=== PATIENT | male | born 1950 | race Caucasian/White ===

== ENCOUNTER 2020-03-27 18:23 | Emergency (ER) | payer MEDICARE, SELFPAY ==
--- NOTE | 2020-03-27 18:26 | XRR_ITS ---
PROCEDURE INFORMATION: Exam: XR Chest, 1 View Exam date and time: 03/27/2020 7:09 PM Age: 69 years old Clinical indication: Left-sided chest pain; Additional info: Cp TECHNIQUE: Imaging protocol: XR of the chest Views: 1 view. COMPARISON: CR Chest 1 view [id number] 02/24/2019 12:44 AM FINDINGS: Lungs: No significant airspace disease. Pleural space: no pleural effusion. Heart/Mediastinum: Borderline cardiomegaly with prominent epicardial fat Diaphragm: Asymmetric elevation of the right hemidiaphragm. Bones/joints: Osteopenia, degenerative change, and old rib fracture. When correlating with the previous study, no significant interval changes are present. . XR/XR chest 1V portable [id number] IMPRESSION: Stable appearance of the chest, not significantly changed from 02/24/19.
--- NOTE | 2020-03-27 19:09 | PC.NURSE ---
EKG done in triage
[2020-03-27 19:12] VITALS: BP 138/75; PULSE 65; RESP 18; TEMP 36.6; O2SAT 97; BMI 32.3
--- NOTE | 2020-03-27 19:19 | CTR_ITS ---
PROCEDURE INFORMATION: Exam: CT Head Without Contrast Exam date and time: 03/27/2020 7:24 PM Age: 69 years old Clinical indication: Weakness, extremity and weakness, facial; Left; Patient HX: HX stroke; Additional info: KRISHNAMURTHY TECHNIQUE: Imaging protocol: Computed tomography of the head without contrast. Radiation optimization: All CT scans at this facility use at least one of these dose optimization techniques: automated exposure control; mA and/or kV adjustment per patient size (includes targeted exams where dose is matched to clinical indication); or iterative reconstruction. COMPARISON: No relevant prior studies available. RADIATION DOSE METRICS: Total DLP (mGy-cm): 917.66 FINDINGS: Brain: Small chronic infarctions are present in the left temporal lobe and bilateral thalami. Mild atrophy and mild white matter chronic microvascular changes are noted. No hemorrhage or CT evidence of acute infarction is seen. Cerebral ventricles: No ventriculomegaly. Bones/joints: Unremarkable. No acute fracture. Paranasal sinuses: Visualized sinuses are unremarkable. No fluid levels. Mastoid air cells: Visualized mastoid air cells are well aerated. Soft tissues: Unremarkable. CT/CT head wo con* [id number] IMPRESSION: No acute intracranial abnormality. Radiation Dose CTDIVOL = (mGy): DLP = 917.66 (mGy-cm)
[2020-03-27 19:22] VITALS: BMI 14.7
--- NOTE | 2020-03-27 19:26 | W.ED.WEAKNES ---
HPI - Weakness General: Chief complaint: Shortness of Breath/Dyspnea Stated complaint: left side pain and stiff, sent by olvin cordova Time Seen by Provider: 03/27/20 19:10 Source: patient Mode of arrival: ambulatory Limitations: no limitations History of Present Illness: HPI Narrative: 69-year-old male states he has had a headache behind his life for the last week. He states he has had some pain down his arm as well. He states he had this multiple times before and is concerned he may have a TIA. He denies any weakness he had no slurred speech. He states he has no chest pain. Denies any worsening improving factors. Denies any fever. Associated symptoms: Reports headache(s); Denies chest pain, chills, dysuria, easy bruising, fever(s), nausea or vomiting Review of Systems Const: Denies: fever(s), chills, body aches or change in appetite Eyes: Denies: blurry vision or eye discomfort ENMT: Denies: throat pain or dental pain Card: Denies: chest pain Resp: Denies: dyspnea GI: Denies: abdominal pain, nausea, vomiting or diarrhea : Denies: dysuria Musc: Denies: neck pain or back pain Skin/Breast: Denies: rash Neuro: Reports: headache(s) Psych: Denies: depression Janes/Lymph: Denies: easy bruising All/Imm: Denies: urticaria PFSH ED PFSH: Medical History (Updated 03/27/20 @ 22:39 by Gabby Woodward MD) Anticoagulation adequate with anticoagulant therapy ASHD (arteriosclerotic heart disease) Atrial fibrillation CVA (cerebral vascular accident) HTN (hypertension) Myocardial infarction Surgical History S/P PTCA (percutaneous transluminal coronary angioplasty) Family History Mother , AGE 97 CAD (coronary artery disease) Social History Smoking and tobacco status: never smoked Household members: spouse Marital status: service: No Physical Exam Const: COMMON NORMALS: no acute distress, patient oriented x3, healthy appearing and alert ORIENTATION/CONSCIOUSNESS: Yes oriented to person, Yes oriented to place and Yes oriented to time HENMT: COMMON NORMALS: normocephalic and atraumatic HEAD & SCALP: normocephalic and atraumatic Eye: COMMON NORMALS: Equal, round and reactive pupils present and EOMs intact bilaterally PUPIL: Yes Equal, round and reactive pupils present Neck/C-Spine: COMMON NORMALS: full ROM and supple Chest: COMMONS NORMALS: normal inspection of the chest and normal palpation of entire chest wall Resp: COMMON NORMALS: normal respiratory effort, No retractions, No use of accessory muscles and clear to auscultation bilaterally AUSCULTATION: clear to auscultation bilaterally Cardio: COMMON NORMALS: regular rate, regular rhythm and No murmurs present (Cardio) RATE: regular rate RHYTHM: regular rhythm GI: COMMON NORMALS: Normal to inspection, nondistended, normoactive bowel sounds present, Soft to palpation, non-tender and no masses PALPATION: Yes Soft to palpation Extremity: COMMON NORMALS: normal to inspection and full ROM Neuro: COMMON NORMALS: patient oriented x3, moves all extremities and no focal motor deficits SENSORIUM/ORIENTATION: Yes alert, Yes oriented to person, Yes oriented to place and Yes oriented to time CRANIAL NERVES: Yes CN normal except as noted COORDINATION/BALANCE: gywbzt-uv-aqgy test normal and pozv-dg-iomh test normal SPEECH: speech normal GAIT: Yes Normal gait present MOTOR EXAM: 5/5 motor strength present throughout, No Pronator motor function present and No Tremors during motor activity present COORDINATION: xrctdy-xz-etfi test normal and ycke-ka-nhtm test normal PUPIL EXAM: Normal pupillary reactivity/response: bilateral Psych: COMMON NORMALS: mental status grossly normal, Normal thought process present and cooperative THOUGHT PROCESS: Normal thought process present Skin: COMMON NORMALS: no rashes or lesions noted and no wounds GENERAL SKIN EXAM: no rashes or lesions noted Course Vital Signs: Vital signs: Vital Signs Temperature 97.9 F 03/27/20 19:12 Pulse Rate 65 03/27/20 22:05 Respiratory Rate 18 03/27/20 22:05 Blood Pressure 133/89 03/27/20 22:05 Pulse Oximetry 94 03/27/20 22:05 MDM - Weakness MDM Narrative: Medical decision making narrative: Genaro presents here with headache along with left neck pain. Neck pain is likely muscular in nature. His neuro exam here is benign he has no signs of acute coronary syndrome or stroke. Patient is stable for discharge at this time is to follow-up with PCP and return if worsening. He understands agrees to plan. Lab Data: Labs: Lab Results 03/27/20 03/27/20 03/27/20 Range/Units 19:23 19:23 19:23 WBC 6.4 (4.0-10.0) 10^3/ uL RBC 5.40 H (4.1-5.3) 10^6/u L Hgb 16.0 (11.7-16.6) g/dL Hct 50.2 (42.0-52.0) % MCV 93.0 (80-94) fL MCH 29.6 (28.0-34.0) pg MCHC 31.9 (30.0-36.0) g/dL RDW 13.4 (12.1-15.1) % Plt Count 251 (130-400) 10^3/c mm MPV 9.9 (7.4-10.4) fL Neut % (Auto) 66.9 % Lymph % (Auto) 19.2 % Wilcox % (Auto) 9.8 % Eos % (Auto) 3.1 % Baso % (Auto) 0.8 % Neut # (Auto) 4.28 (1.8-7.7) 10^3/u L Lymph # (Auto) 1.2 (0.8-4.8) 10^3/u L Wilcox # (Auto) 0.6 (0.2-0.9) 10^3/u L Eos # (Auto) 0.2 (0.0-0.8) 10^3/u L Baso # (Auto) 0.1 (0.0-0.1) 10^3/u L Nucleated RBC % (a uto) 0 % Nucleated RBCs # 0.0 /100WBC Sodium 141 (136-145) mmol/L Potassium 4.4 (3.5-5.1) mmol/L Chloride 106 (98-107) mmol/L Carbon Dioxide 25 (22-29) mmol/L Anion Gap 14.4 (5-19) BUN 24 H (8-23) mg/dL Creatinine 1.7 H (0.7-1.2) mg/dL GFR Calculation Not Reportable Glucose 117 H (65-115) mg/dL Calculated Osmolal ity 297 H (285-295) mOsm/k g Calcium 10.0 (8.5-10.5) mg/dL Total Bilirubin 0.7 (0.15-1.2) mg/dL AST 20 (0-40) U/L ALT 27 (0-41) U/L Alkaline Phosphata se 153 H (40-130) IU/L Troponin T Baselin e 18 H (0-15) ng/L Troponin T 120 Min pretty (0-15) ng/L Delta Troponin T (0-10) ABS# Total Protein 7.4 (6.6-8.7) g/dL Albumin 4.4 (3.5-5.2) g/dL Globulin 3.0 (1.3-4.6) g/dL Lipase 40 (13-60) U/L 03/27/ Range/Units 21:43 WBC (4.0-10.0) 10^3/ uL RBC (4.1-5.3) 10^6/u L Hgb (11.7-16.6) g/dL Hct (42.0-52.0) % MCV (80-94) fL MCH (28.0-34.0) pg MCHC (30.0-36.0) g/dL RDW (12.1-15.1) % Plt Count (130-400) 10^3/c mm MPV (7.4-10.4) fL Neut % (Auto) % Lymph % (Auto) % Wilcox % (Auto) % Eos % (Auto) % Baso % (Auto) % Neut # (Auto) (1.8-7.7) 10^3/u L Lymph # (Auto) (0.8-4.8) 10^3/u L Wilcox # (Auto) (0.2-0.9) 10^3/u L Eos # (Auto) (0.0-0.8) 10^3/u L Baso # (Auto) (0.0-0.1) 10^3/u L Nucleated RBC % (a uto) % Nucleated RBCs # /100WBC Sodium (136-145) mmol/L Potassium (3.5-5.1) mmol/L Chloride (98-107) mmol/L Carbon Dioxide (22-29) mmol/L Anion Gap (5-19) BUN (8-23) mg/dL Creatinine (0.7-1.2) mg/dL GFR Calculation Glucose (65-115) mg/dL Calculated Osmolal ity (285-295) mOsm/k g Calcium (8.5-10.5) mg/dL Total Bilirubin (0.15-1.2) mg/dL AST (0-40) U/L ALT (0-41) U/L Alkaline Phosphata se (40-130) IU/L Troponin T Baselin e (0-15) ng/L Troponin T 120 Min pretty 18.60 H (0-15) ng/L Delta Troponin T 0.60 (0-10) ABS# Total Protein (6.6-8.7) g/dL Albumin (3.5-5.2) g/dL Globulin (1.3-4.6) g/dL Lipase (13-60) U/L Imaging Data^: CT Head: Attestation: I personally reviewed and interpreted this imaging study as follows: Radiologist's impression: [address] [address] [address] Scan Report Signed Patient: Genaro Ayers Unit #: [id number] : 1950 Age/Sex: 69 / M ADM Date: 03/27/20 Loc: ER Room/Bed: Attending Dr: Ordering Provider/Ordering MD: Gabby Woodward MD Date of Service: 03/27/20 Procedure(s): CT head wo con* [id number] Accession Number(s): [id number] Report Number: [id number] PROCEDURE INFORMATION: Exam: CT Head Without Contrast Exam date and time: 03/27/2020 7:24 PM Age: 69 years old Clinical indication: Weakness, extremity and weakness, facial; Left; Patient HX: HX stroke; Additional info: KRISHNAMURTHY TECHNIQUE: Imaging protocol: Computed tomography of the head without contrast. Radiation optimization: All CT scans at this facility use at least one of these dose optimization techniques: automated exposure control; mA and/or kV adjustment per patient size (includes targeted exams where dose is matched to clinical indication); or iterative reconstruction. COMPARISON: No relevant prior studies available. RADIATION DOSE METRICS: Total DLP (mGy-cm): 917.66 FINDINGS: Brain: Small chronic infarctions are present in the left temporal lobe and bilateral thalami. Mild atrophy and mild white matter chronic microvascular changes are noted. No hemorrhage or CT evidence of acute infarction is seen. Cerebral ventricles: No ventriculomegaly. Bones/joints: Unremarkable. No acute fracture. Paranasal sinuses: Visualized sinuses are unremarkable. No fluid levels. Mastoid air cells: Visualized mastoid air cells are well aerated. Soft tissues: Unremarkable. CT/CT head wo con* [id number] IMPRESSION: No acute intracranial abnormality. EKG Data^: EKG 1: Attestation: I personally reviewed and interpreted this EKG as follows: EKG interpretation date: 03/27/20 Interpretation: nsr hr [address] or t wave abnormalities qrs 124 qtc 414 Discharge Plan Discharge Patient Disposition: Home Clinical Impression: Neck pain, Headache Condition: Stable Prescriptions: New Robaxin-750 750 mg tablet 750 mg PO Q6H Qty: 30 RF: 0 Naprosyn 500 mg tablet 500 mg PO BID PRN (Reason: pain) Qty: 20 RF: 0 No Action lisinopril 5 mg tablet 5 mg PO DAILY@0900 RF: 0 nitroglycerin [Nitrostat] 0.4 mg tablet, sublingual 0.4 mg SUBLINGUAL Q5M PRN (Reason: chest pains) RF: 0 clopidogrel 75 mg tablet 75 mg PO DAILY@0900 RF: 0 Centrum Men 8 mg iron- 200 mcg-600 mcg Tablet 1 tab PO DAILY@0900 RF: 0 atorvastatin 40 mg tablet 40 mg PO BEDTIME@2100 RF: 0 metoprolol tartrate 25 mg tablet 25 mg PO DAILY@0900,2100 RF: 0 Eliquis 5 mg tablet 5 mg PO BID@0900,2100 RF: 0 Discharge Orders: Discharge ED (Routine); Ordered 03/27/20 Ordered By: Gabby Woodward Referrals: Neelima El MD [Primary Care Provider] - 1-3 days Discharge Diet: Advance as tolerated Discharge Activity: Resume usual activity Patient Instructions: Acute Headache (ED), Cervical Sprain (ED) Coding Level of Care Code ED Dinkey Press Operator for Chg Fwd Exam Comprehensive
[2020-03-27 19:38] LABS: Basophils # 0.1 10^3/uL (0.0-0.1); Basophils % 0.8 %; Eosinophils # 0.2 10^3/uL (0.0-0.8); Eosinophils % 3.1 %; Hematocrit 50.2 % (42.0-52.0); Lymphocytes # 1.2 10^3/uL (0.8-4.8); Lymphocytes % 19.2 %; Mean Corpuscular HGB Conc 31.9 g/dL (30.0-36.0); Mean Corpuscular Hemoglobin 29.6 pg (28.0-34.0); Mean Platelet Volume 9.9 fL (7.4-10.4); Monocytes # 0.6 10^3/uL (0.2-0.9); Monocytes % 9.8 %; Neutrophils # 4.28 10^3/uL (1.8-7.7); Neutrophils % 66.9 %; Nucleated Red Blood Cells % 0 %; Platelet Count 251 10^3/cmm (130-400); Red Cell Distribution Width 13.4 % (12.1-15.1); White Blood Count 6.4 10^3/uL (4.0-10.0)
[2020-03-27 20:04] LABS: Alanine Aminotransferase 27 U/L (0-41); Albumin Level 4.4 g/dL (3.5-5.2); Alkaline Phosphatase 153 IU/L (40-130); Anion Gap 14.4 (5-19); Aspartate Amino Transferase 20 U/L (0-40); Blood Urea Nitrogen 24 mg/dL (8-23); Carbon Dioxide 25 mmol/L (22-29); Chloride 106 mmol/L (98-107); Glucose 117 mg/dL (65-115); Lipase 40 U/L (13-60); Osmolality Calculated 297 mOsm/kg (285-295); Potassium 4.4 mmol/L (3.5-5.1); Sodium 141 mmol/L (136-145); Total Bilirubin 0.7 mg/dL (0.15-1.2); Total Protein 7.4 g/dL (6.6-8.7)
[2020-03-27 20:08] LABS: Troponin(5th) Baseline 18 ng/L (0-15)
[2020-03-27 20:56] VITALS: BP 118/64; PULSE 63; RESP 16; O2SAT 98
[2020-03-27 22:05] VITALS: BP 133/89; PULSE 65; RESP 18; O2SAT 94
[2020-03-27 23:48] VITALS: BP 145/89; PULSE 68; RESP 16; O2SAT 99
== END 2020-03-27 23:49 | disposition home or self-care (01) ==
PROVIDERS: Emergency Provider Emergency Medicine; Family Provider Family Medicine; PCP Family Medicine
DX: R51.9 Headache, unspecified (principal); M54.2 Cervicalgia; Z79.01 Long term (current) use of anticoagulants; Z79.02 Long term (current) use of antithrombotics/antiplatelets; I48.91 Unspecified atrial fibrillation; Z86.73 Personal history of transient ischemic attack (TIA), and cerebral infarction without residual deficits; I10 Essential (primary) hypertension; I25.2 Old myocardial infarction
CPT/HCPCS: 12345; 70450; 71045; 80053; 83690; 84484; 85025; 99282; 99283

== ENCOUNTER → 2020-07-18 17:31 | Outpatient (BNVA) | payer MEDICARE, SELFPAY | PROVIDERS: Family Provider Family Medicine; PCP Family Medicine; Visit Provider Emergency Medicine | DX: I25.10 Atherosclerotic heart disease of native coronary artery without angina pectoris (principal); I63.9 Cerebral infarction, unspecified; Z79.01 Long term (current) use of anticoagulants | CPT/HCPCS: 85025; 85610; 85730 ==

== ENCOUNTER 2020-07-31 09:51 | Outpatient (CLI) | payer MEDICARE, SELFPAY ==
--- NOTE | 2020-07-31 11:31 | CT_ITS ---
WS: [id number] Comparison 03/27/2020. Exam: CT head wo con* [id number] Date/Time of Exam: 07/31/2020 11:31 AM Reason For Exam: Z79.01 - long-term (current) use of anticoagulants DLP: 992.[address] scans at [facility] use at least one of these dose optimization techniques: automat ed exposure control; mA and/or kV adjustment per patient size (includes targeted exams where dose is matched to clinical indication); or iterative reconstruction. No sign of space-occupying mass or acute intracranial bleed. Old left temporal lobe infarct noted. Th ere are old lacunar infarcts in the bilateral thalami. The ventricles and basal cisterns are normal i n size. No extra-axial fluid collections are seen. Diffuse cerebral atrophy noted. The skull is intac t. The facial sinuses and mastoids are clear. CT/CT head wo con* [id number] IMPRESSION: 1. No acute intracranial finding. No change since prior study.
== END 2020-07-31 09:52 | disposition home or self-care (01) ==
PROVIDERS: PCP Family Medicine; Visit Provider Emergency Medicine
DX: Z79.01 Long term (current) use of anticoagulants (principal); I63.9 Cerebral infarction, unspecified; I25.10 Atherosclerotic heart disease of native coronary artery without angina pectoris
CPT/HCPCS: 70450; 80053; 80061; 83880

== ENCOUNTER → 2020-09-04 16:22 | Outpatient (BNVA) | payer MEDICARE, SELFPAY | PROVIDERS: PCP Family Medicine; Visit Provider Nurse Practitioner Family | DX: N40.0 Benign prostatic hyperplasia without lower urinary tract symptoms (principal); Z87.2 Personal history of diseases of the skin and subcutaneous tissue; N41.0 Acute prostatitis | CPT/HCPCS: 84153 ==

== ENCOUNTER → 2020-09-21 15:06 | Outpatient (BNVA) | payer MEDICARE, SELFPAY | PROVIDERS: PCP Family Medicine; Visit Provider Emergency Medicine | DX: N41.0 Acute prostatitis (principal); R35.0 Frequency of micturition; M54.5 Low back pain | CPT/HCPCS: 81000 ==

== ENCOUNTER → 2020-10-13 17:58 | Outpatient (BNVA) | payer MEDICARE, SELFPAY | PROVIDERS: PCP Family Medicine; Visit Provider Emergency Medicine | DX: N41.0 Acute prostatitis (principal); Z79.899 Other long term (current) drug therapy | CPT/HCPCS: 81000; 87086 ==

== ENCOUNTER → 2020-11-07 09:17 | Outpatient (BNVA) | payer MEDICARE, SELFPAY | PROVIDERS: PCP Family Medicine; Visit Provider Urology | DX: R35.0 Frequency of micturition (principal); N41.1 Chronic prostatitis | CPT/HCPCS: 81003 ==

== ENCOUNTER → 2020-12-26 14:23 | Outpatient (BNVA) | payer MEDICARE, SELFPAY | PROVIDERS: Visit Provider Emergency Medicine | DX: R17 Unspecified jaundice (principal); H10.31 Unspecified acute conjunctivitis, right eye; I10 Essential (primary) hypertension | CPT/HCPCS: 80053; 80061; 85025 ==

== ENCOUNTER → 2021-06-24 12:25 | Outpatient (BNVA) | payer MEDICARE, SELFPAY | PROVIDERS: PCP Nurse Practitioner Family; Visit Provider Nurse Practitioner Family | DX: M10.9 Gout, unspecified (principal); I25.10 Atherosclerotic heart disease of native coronary artery without angina pectoris; R79.89 Other specified abnormal findings of blood chemistry | CPT/HCPCS: 73630; 80053; 84550 ==

== ENCOUNTER → 2021-07-11 09:48 | Outpatient (BNVA) | payer MEDICARE, SELFPAY | PROVIDERS: PCP Nurse Practitioner Family; Visit Provider Urology | DX: N41.1 Chronic prostatitis (principal) | CPT/HCPCS: 81003 ==

== ENCOUNTER → 2021-08-30 17:19 | Outpatient (BNVA) | payer MEDICARE, SELFPAY | PROVIDERS: PCP Nurse Practitioner Family; Visit Provider Emergency Medicine | DX: M10.071 Idiopathic gout, right ankle and foot (principal); M10.9 Gout, unspecified | CPT/HCPCS: 80048; 84550; 85025 ==

== ENCOUNTER → 2021-12-04 12:40 | Outpatient (BNVA) | payer MEDICARE, SELFPAY | PROVIDERS: Visit Provider Emergency Medicine | DX: M10.9 Gout, unspecified (principal); I10 Essential (primary) hypertension | CPT/HCPCS: 80048; 84550 ==

== ENCOUNTER 2022-01-07 17:53 | Emergency (ER) | payer MEDICARE, SELFPAY ==
--- NOTE | 2022-01-07 | CTR_ITS ---
[facility] Final Radiology Report Call: [phone] Name: ONEIDA COLLADO Age: 71Years M Date: 01/07/2022 SSN: -- : 1950 Study: CTA HEAD Requesting Physician: MOSES DEMPSEY Images: [id number] Add?l Studies: [id number] - CTA NECK (1) Provided Clinical History: weakness Page 1 of 3 PROCEDURE INFORMATION: Exam: CTA Head With Contrast, Arteriography Exam date and time: 01/07/2022 6:51 PM Age: 71 years old Clinical indication: Weakness TECHNIQUE: Imaging protocol: Computed tomographic angiography of the head with contrast. Exam focused on the arteries. 3D rendering (Not supervised by radiologist): MIP and/or 3D reconstructed images were created by the technologist. Radiation optimization: All CT scans at this facility use at least one of these dose optimization techniques: automated exposure control; mA and/or kV adjustment per patient size (includes targeted exams where dose is matched to clinical indication); or iterative reconstruction. Contrast material: OMNIPAQUE 350; Contrast volume: 80 ml; Contrast route: INTRAVENOUS (IV); COMPARISON: CT head wo con* [id number] 07/31/2020 11:36 AM RADIATION DOSE METRICS: Total DLP (mGy-cm): 986.42 FINDINGS: ANTERIOR CIRCULATION: Right internal carotid artery: Intracranial segment is patent with no significant stenosis. No aneurysm. Right middle cerebral artery: No occlusion or significant stenosis. No aneurysm. Right anterior cerebral artery: No occlusion or significant stenosis. No aneurysm. Left internal carotid artery: Intracranial segment is patent with no significant stenosis. No aneurysm. Left middle cerebral artery: No occlusion or significant stenosis. No aneurysm. Left anterior cerebral artery: No occlusion or significant stenosis. No aneurysm. POSTERIOR CIRCULATION: Right vertebral artery: Dominant right vertebral artery with patent left vertebral artery. Left vertebral artery: See Right vertebral artery finding. Basilar artery: See Right posterior communicating artery finding. Right posterior cerebral artery: See Right posterior communicating artery finding. Left posterior cerebral artery: See Left posterior communicating artery finding. Right posterior communicating artery: Right posterior communicating artery which supplies most of the flow to the right posterior cerebral artery. Small contribution from the tip of the basilar artery. Normal variant. Left posterior communicating artery: Left posterior communicating artery which supplies most of the flow to the left posterior cerebral artery. Small contribution from the tip of the basilar.. Brain: No definite mass, mass effect, or midline shift. Cerebral ventricles: No ventriculomegaly. Bones/joints: Unremarkable. No acute fracture. Soft tissues: Unremarkable. Other findings: Patent anterior cerebral artery. . IMPRESSION: No large vessel occlusion. PROCEDURE INFORMATION: Exam: CTA Neck With Contrast Exam date and time: 01/07/2022 6:51 PM Age: 71 years old Clinical indication: Weakness TECHNIQUE: Imaging protocol: Computed tomographic angiography of the neck with contrast. 3D rendering (Not supervised by radiologist): MIP and/or 3D reconstructed images were created by the technologist. Radiation optimization: All CT scans at this facility use at least one of these dose optimization techniques: automated exposure control; mA and/or kV adjustment per patient size (includes targeted exams where dose is matched to clinical indication); or iterative reconstruction. Contrast material: OMNIPAQUE 350; Contrast volume: 80 ml; Contrast route: INTRAVENOUS (IV); COMPARISON: CT head wo con* [id number] 07/31/2020 11:36 AM RADIATION DOSE METRICS: Total DLP (mGy-cm): 986.42 FINDINGS: Right common carotid artery: Right carotid bifurcation calcified plaque. Right internal carotid artery: 3 mm minimum diameter proximal right ICA with 5 mm diameter more distally. Mild 40% right ICA stenosis by direct measurement using NASCET criteria. Right external carotid artery: No occlusion or stenosis of the origin. Left common carotid artery: Left carotid bifurcation calcified plaque. Left internal carotid artery: Spiral tortuosity of the left cervical ICA. 4 mm minimum diameter proximal left ICA with 5 mm diameter more distally. Mild left 20% ICA stenosis by direct measurement using NASCET criteria. Left external carotid artery: No occlusion or stenosis of the origin. Right vertebral artery: Dominant right vertebral artery with patent left vertebral artery. Left vertebral artery: Small left vertebral artery which appears to terminate intracranially in the left PICA. Normal variant. Aorta: Calcification of the thoracic aorta and/or great vessels consistent with atherosclerotic vessel disease. Soft tissues: Normal. No significant soft tissue swelling. Bones/joints: Moderate to severe multilevel spine degenerative changes including degenerative disc disease, spondylosis and facet degenerative changes. IMPRESSION: 1. Dominant right vertebral artery with patent left vertebral artery. 2. Mild left 20% ICA stenosis by direct measurement using NASCET criteria. 3. Mild 40% right ICA stenosis by direct measurement using NASCET criteria. REFERENCES: NASCET CRITERIA. The degree of stenosis in the cervical segment of the internal carotid artery is based on NASCET criteria. Normal is no stenosis. Mild is less than 50% stenosis. Moderate is 50- 69% stenosis. Severe is 70% to 99% stenosis. Total occlusion is no detectable patent lumen. Thank you for allowing us to participate in the care of your patient. Dictated and Authenticated by: Larry Paniagua MD 01/07/2022 7:44 PM Central Time ([place] & [place]) BAKARI
[2022-01-07 17:54] VITALS: BP 146/91; PULSE 82; RESP 18; TEMP 36.6; O2SAT 98; BMI 33.5
--- NOTE | 2022-01-07 18:02 | XRR_ITS ---
PROCEDURE INFORMATION: Exam: XR Chest Exam date and time: 01/07/2022 6:23 PM Age: 71 years old Clinical indication: Other: Headache; Additional info: Weakness TECHNIQUE: Imaging protocol: Radiologic exam of the chest. Views: 1 view. COMPARISON: CR XR chest 1V portable [id number] 03/27/2020 7:08 PM FINDINGS: Lungs: Unremarkable. No consolidation. Pleural spaces: Unremarkable. No pleural effusion. No pneumothorax. Heart/Mediastinum: Unremarkable. No cardiomegaly. Bones/joints: Mild thoracic spondylosis. XR/XR chest 1V portable [id number] IMPRESSION: No acute findings.
--- NOTE | 2022-01-07 18:03 | ECG_ITS ---
[facility] Test Date: 2022-01-07 Pat Name: Genaro Ayers Department: Room: Gender: Male Product Mgr: : 1950 Requested By: Gabby Woodward Order Number: [id number] Viola MD: Emiliana Irvin M.D. Measurements Intervals [place] Rate: 72 P: 36 ND: 144 QRS: -23 QRSD: 125 T: 20 QT: 405 QTc: 446 Interpretive Statements SINUS RHYTHM BORDERLINE LEFT AXIS DEVIATION [QRS AXIS < -20] MODERATE INTRAVENTRICULAR CONDUCTION DELAY [110+ ms QRS DURATION] MINIMAL VOLTAGE CRITERIA FOR LVH, CONSIDER NORMAL VARIANT Compared to ECG 03/02/2019 11:26:05 Intraventricular conduction delay now present Atrial flutter no longer present Myocardial infarct finding no longer present Electronically Signed On 01-07-2022 20:25:37 CDT by Emiliana Irvin M.D. [email or web address]
[2022-01-07 18:14] LABS: Basophils # 0.1 10^3/uL (0.0-0.1); Basophils % 0.6 %; Eosinophils # 0.2 10^3/uL (0.0-0.8); Eosinophils % 2.2 %; Hemoglobin 15.4 g/dL (11.7-16.6); Lymphocytes # 1.1 10^3/uL (0.8-4.8); Lymphocytes % 13.3 %; Mean Corpuscular HGB Conc 32.1 g/dL (30.0-36.0); Mean Corpuscular Hemoglobin 29.1 pg (28.0-34.0); Mean Corpuscular Volume 90.6 fl (80-94); Mean Platelet Volume 9.9 fL (7.4-10.4); Monocytes # 0.8 10^3/uL (0.2-0.9); Monocytes % 10.2 %; Neutrophils % 73.6 %; Nucleated Red Blood Cells % 0 %; Platelet Count 251 10^3/cmm (130-400); Red Cell Distribution Width 14.1 % (12.1-15.1); White Blood Count 7.9 10^3/uL (4.0-10.0)
[2022-01-07] MEDS: aspirin 81 mg Chew Tablet 324 MG PO (18:14)
[2022-01-07 18:19] LABS: INR 1.12 (0.8-1.2)
[2022-01-07 18:29] LABS: Troponin(5th) Baseline 19 ng/L (0-15)
[2022-01-07 18:30] LABS: Alanine Aminotransferase 25 U/L (0-41); Albumin Level 4.2 g/dL (3.5-5.2); Alkaline Phosphatase 151 U/L (40-130); Anion Gap 16.3 (5-19); Aspartate Amino Transferase 19 U/L (0-40); Blood Urea Nitrogen 18 mg/dL (8-23); Calcium 9.6 mg/dL (8.5-10.5); Carbon Dioxide 24 mmol/L (22-29); Chloride 101 mmol/L (98-107); Globulin 3.3 g/dL (1.3-4.6); Glucose 95 mg/dL (65-115); Osmolality Calculated 286 mOsm/kg (285-295); Potassium 4.3 mmol/L (3.5-5.1); Sodium 137 mmol/L (136-145); Total Bilirubin 1.1 mg/dL (0.15-1.2); Total Protein 7.5 g/dL (6.6-8.7)
--- NOTE | 2022-01-07 18:31 | ED_ITS ---
HPI - Headache General: Chief Complaint: Headache Stated Complaint: HEADACHE/ L SIDED STIFFNESS Time Seen by Provider: 01/07/22 17:56 Source: patient Mode of arrival: ambulatory Limitations: no limitations History of Present Illness: 71-year-old male who has history of stroke in the past along with TIAs he states he is concerned today because he is having a felt was like some weakness to his left side since resolved he states he does have some numbness feeling to the left side of his face he has no right facial droop he is actually walked into the ER with EMS. He denies any blurry vision denies any slurred speech he has had a mild headache. Associated symptoms: Deny chest pain, fever(s), nausea, rash or vomiting Review of Systems Const: Denies: fever(s), chills, body aches or change in appetite Eyes: Denies: blurry vision or eye discomfort ENMT: Denies: throat pain or dental pain Card: Denies: chest pain Resp: Denies: dyspnea GI: Denies: abdominal pain, nausea, vomiting or diarrhea : Denies: dysuria Musc: Denies: neck pain or back pain Skin/Breast: Denies: rash Neuro: Denies: headache(s) Psych: Denies: depression Janes/Lymph: Denies: easy bruising All/Imm: Denies: urticaria PFSH ED PFSH: Medical History Acute gout of right foot Anticoagulation adequate with anticoagulant therapy ASHD (arteriosclerotic heart disease) Atrial fibrillation Chronic prostatitis CVA (cerebral vascular accident) HTN (hypertension) Low back pain Myocardial infarction Scleral icterus Surgical History S/P PTCA (percutaneous transluminal coronary angioplasty) Family History Mother , AGE 97 CAD (coronary artery disease) Father , AT AGE 53 No problems noted. Social History Smoking and tobacco status: never smoked Alcohol intake: never Household members: spouse Marital status: service: No Current occupational status: retired History of recent travel: No Physical Exam Const: COMMON NORMALS: no acute distress, patient oriented x3 and healthy appearing HENMT: COMMON NORMALS: normocephalic and atraumatic HEAD & SCALP: normocephalic and atraumatic Eye: COMMON NORMALS: Equal, round and reactive pupils present and EOMs intact bilaterally PUPIL: Yes Equal, round and reactive pupils present Neck/C-Spine: COMMON NORMALS: full ROM and supple Chest: COMMONS NORMALS: normal inspection of the chest and normal palpation of entire chest wall Resp: COMMON NORMALS: normal respiratory effort, No retractions, No use of accessory muscles and clear to auscultation bilaterally AUSCULTATION: clear to auscultation bilaterally Cardio: COMMON NORMALS: regular rate, regular rhythm and No murmurs present (Cardio) RATE: regular rate RHYTHM: regular rhythm GI: COMMON NORMALS: Normal to inspection, nondistended, normoactive bowel sounds present, Soft to palpation, non-tender and no masses PALPATION: Yes Soft to palpation Extremity: COMMON NORMALS: normal to inspection and full ROM Neuro: COMMON NORMALS: patient oriented x3, moves all extremities and no focal motor deficits Psych: COMMON NORMALS: mental status grossly normal, Normal thought process present and cooperative THOUGHT PROCESS: Normal thought process present Skin: COMMON NORMALS: no rashes or lesions noted and no wounds GENERAL SKIN EXAM: no rashes or lesions noted Course Vital Signs: Vital signs: Vital Signs Temperature 97.8 F 01/07/22 17:54 Pulse Rate 82 01/07/22 17:54 Respiratory Rate 18 01/07/22 17:54 Blood Pressure 146/91 01/07/22 17:54 Pulse Oximetry 98 01/07/22 17:54 Oxygen Delivery Me thod 01/07/22 17:54 MDM - Headache Medical Decision Making Patient presents here with some numbness to his left side he is able ambulate his NIH here was [address] head showed no acute abnormalities he is on blood thinner at this time. I did offer him admission for possible MRI states he feels improved like to follow-up his PCP I feel this is acceptable as well if he has any worsening symptoms he is to return. Lab Data : 01/07/22 18:05 01/07/22 18:05 Radiology Impressions Chest X-Ray 01/07/22 18:02 IMPRESSION: No acute findings. Laboratory Results WBC 7.9 10^3/uL (4.0-10.0) 10/04/22 18:05 RBC 5.30 10^6/uL (4.1-5.3) 01/07/22 18:05 Hgb 15.4 g/dL (11.7-16.6) 01/07/22 18:05 Hct 48.0 % (42.0-52.0) 01/07/22 18:05 MCV 90.6 fl (80-94) 01/07/22 18:05 MCH 29.1 pg (28.0-34.0) 01/07/22 18:05 MCHC 32.1 g/dL (30.0-36.0) 01/07/22 18:05 RDW 14.1 % (12.1-15.1) 01/07/22 18:05 Plt Count 251 10^3/cmm (130-400) 01/07/22 18:05 MPV 9.9 fL (7.4-10.4) 01/07/22 18:05 Neut % (Auto) 73.6 % 01/07/22 18:05 Lymph % (Auto) 13.3 % 01/07/22 18:05 [place] % (Auto) 10.2 % 01/07/22 18:05 Eos % (Auto) 2.2 % 01/07/22 18:05 Baso % (Auto) 0.6 % 01/07/22 18:05 Neut # (Auto) 5.80 10^3/uL (1.8-7.7) 01/07/22 18:05 Lymph # (Auto) 1.1 10^3/uL (0.8-4.8) 01/07/22 18:05 [place] # (Auto) 0.8 10^3/uL (0.2-0.9) 01/07/22 18:05 Eos # (Auto) 0.2 10^3/uL (0.0-0.8) 01/07/22 18:05 Baso # (Auto) 0.1 10^3/uL (0.0-0.1) 01/07/22 18:05 Nucleated RBC % (auto) 0 % 01/07/22 18:05 Nucleated RBCs # 0.0 /100WBC 01/07/22 18:05 PT 14.80 SECONDS (12.1-14.9) 01/07/22 18:05 INR 1.12 (0.8-1.2) 01/07/22 18:05 Sodium 137 mmol/L (136-145) 01/07/22 18:05 Potassium 4.3 mmol/L (3.5-5.1) 01/07/22 18:05 Chloride 101 mmol/L (98-107) 01/07/22 18:05 Carbon Dioxide 24 mmol/L (22-29) 01/07/22 18:05 Anion Gap 16.3 (5-19) 01/07/22 18:05 BUN 18 mg/dL (8-23) 01/07/22 18:05 Creatinine 1.4 mg/dL (0.7-1.2) H 01/07/22 18:05 GFR Calculation Not Reportable 01/07/22 18:05 Glucose 95 mg/dL (65-115) 01/07/22 18:05 Calculated Osmolality 286 mOsm/kg (285-295) 01/07/22 18:05 Calcium 9.6 mg/dL (8.5-10.5) 01/07/22 18:05 Total Bilirubin 1.1 mg/dL (0.15-1.2) 01/07/22 18:05 AST 19 U/L (0-40) 01/07/22 18:05 ALT 25 U/L (0-41) 01/07/22 18:05 Alkaline Phosphatase 151 U/L (40-130) H 01/07/22 18:05 Troponin T Baseline 19 ng/L (0-15) H 01/07/22 18:05 Troponin T 120 Minute 17.40 ng/L (0-15) H 01/07/22 20:00 Delta Troponin T -1.60 ABS# (0-10) L 01/07/22 20:00 Total Protein 7.5 g/dL (6.6-8.7) 01/07/22 18:05 Albumin 4.2 g/dL (3.5-5.2) 01/07/22 18:05 Globulin 3.3 g/dL (1.3-4.6) 01/07/22 18:05 EKG Data EKG 1: I personally reviewed and interpreted this EKG as follows: EKG interpretation date: 01/07/22 EKG interpretation time: 18:39 Interpretation: nsr hr [address] or t wave abnormalities qrs 125 qtc 430 Discharge Plan Discharge Patient Disposition: Home Clinical Impression: Brain TIA Condition: Stable Prescriptions: No Action tamsulosin [Flomax] 0.4 mg capsule 0.4 mg PO .occ allopurinol 100 mg tablet 150 mg PO DAILY Qty: 135 1RF lisinopril 10 mg tablet 10 mg PO BID Qty: 60 1RF fish,bora,flax oils-om3,6,9no1 400-400-400 mg capsule 1 cap PO DAILY Qty: 90 1RF Eliquis 5 mg tablet 5 mg PO BID Qty: 180 3RF clopidogrel 75 mg tablet 75 mg PO DAILY@0900 Qty: 90 3RF metoprolol tartrate 25 mg tablet 25 mg PO BID Qty: 180 3RF atorvastatin 40 mg tablet 40 mg PO BEDTIME@2100 Qty: 90 3RF Centrum Men 8 mg iron- 200 mcg-600 mcg Tablet 1 tab PO DAILY@0900 Discharge Orders: Discharge ED (Routine); Ordered 01/07/22 Ordered By: Gbaby Woodward Referrals: Neelima El MD [Primary Care Provider] - 1-3 days Discharge Diet: Advance as tolerated Discharge Activity: Resume usual activity Patient Instructions: TIA Coding Level of Care Code ED Superintendent Service for Benedict Edmondson Exam Comprehensive NIH stroke score NIHSS Level Of Consciousness - 1a: 0 Level Of Consciousness Commands - 1c: Both Correct Best Gaze - 2: Normal Visual Bateman - 3: No Visual Loss Facial Palsy - 4: Normal Motor Arm Right - 5: No Drift Motor Arm Left - 5: No Drift Motor Leg Right - 6: No Drift Motor Leg Left - 6: No Drift Limb Ataxia - 7: Absent Sensory - 8: Normal Best Language - 9: No Aphasia Dysarthia - 10: Normal Extinction And Inattention - 11: 0
--- NOTE | 2022-01-07 18:55 | PC.NURSE ---
report given to ralph presley assumed care.
--- NOTE | 2022-01-07 20:03 | ECG_ITS ---
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 Measurements Intervals [place] Rate: 71 P: 38 [place]: 144 QRS: -25 QRSD: 125 T: 23 QT: 415 QTc: 454 Interpretive Statements SINUS RHYTHM BORDERLINE LEFT AXIS DEVIATION [QRS AXIS < -20] MODERATE INTRAVENTRICULAR CONDUCTION DELAY [110+ ms QRS DURATION] MODERATE VOLTAGE CRITERIA FOR LVH, CONSIDER NORMAL VARIANT Compared to ECG 01/07/2022 18:39:41 No significant changes Electronically Signed On 01-07-2022 20:34:12 CDT by Emiliana Irvin M.D. [email or web address]
[2022-01-07 21:50] VITALS: BP 125/76; PULSE 72; O2SAT 92
== END 2022-01-07 21:37 | disposition home or self-care (01) ==
PROVIDERS: Emergency Provider Emergency Medicine; PCP Family Medicine
DX: G45.8 Other transient cerebral ischemic attacks and related syndromes (principal); I10 Essential (primary) hypertension; I48.91 Unspecified atrial fibrillation; I25.10 Atherosclerotic heart disease of native coronary artery without angina pectoris; I25.2 Old myocardial infarction; Z79.01 Long term (current) use of anticoagulants; Z86.73 Personal history of transient ischemic attack (TIA), and cerebral infarction without residual deficits; Z82.49 Family history of ischemic heart disease and other diseases of the circulatory system
CPT/HCPCS: 70450; 70496; 70498; 71045; 80053; 84484; 85025; 85610; 93005; 99285; Q9967

== ENCOUNTER → 2022-01-17 10:44 | Outpatient (BNVA) | payer MEDICARE, SELFPAY | PROVIDERS: PCP Family Medicine; Visit Provider Internal Medicine Cardiovascular Disease | DX: I48.0 Paroxysmal atrial fibrillation (principal); Z79.01 Long term (current) use of anticoagulants; Z86.73 Personal history of transient ischemic attack (TIA), and cerebral infarction without residual deficits; I10 Essential (primary) hypertension; I25.10 Atherosclerotic heart disease of native coronary artery without angina pectoris; Z98.61 Coronary angioplasty status | CPT/HCPCS: 99214 ==

== ENCOUNTER → 2022-01-24 12:20 | Outpatient (BNVA) | payer MEDICARE, SELFPAY | PROVIDERS: Visit Provider Specialist | DX: I99.8 Other disorder of circulatory system (principal); I25.10 Atherosclerotic heart disease of native coronary artery without angina pectoris; G93.9 Disorder of brain, unspecified; I48.91 Unspecified atrial fibrillation; I65.29 Occlusion and stenosis of unspecified carotid artery; Z79.01 Long term (current) use of anticoagulants; I21.9 Acute myocardial infarction, unspecified | CPT/HCPCS: 36415; 82607; 82746; 83036; 85610; 99205 ==

== ENCOUNTER → 2022-02-06 13:04 | Outpatient (BNVA) | payer MEDICARE, SELFPAY | PROVIDERS: Referring Provider Specialist; Visit Provider Specialist | DX: G93.9 Disorder of brain, unspecified (principal); G45.9 Transient cerebral ischemic attack, unspecified | CPT/HCPCS: 95812; 95816 ==

== ENCOUNTER → 2022-02-17 07:50 | Outpatient (BNVA) | payer MEDICARE, SELFPAY | PROVIDERS: Referring Provider Specialist; Visit Provider Specialist | DX: G93.9 Disorder of brain, unspecified (principal); G45.9 Transient cerebral ischemic attack, unspecified; R41.82 Altered mental status, unspecified | CPT/HCPCS: 95812 ==

== ENCOUNTER → 2022-03-10 15:57 | Outpatient (BNVA) | payer MEDICARE, SELFPAY | PROVIDERS: Visit Provider Nurse Practitioner Family | DX: M10.9 Gout, unspecified (principal); G45.9 Transient cerebral ischemic attack, unspecified | CPT/HCPCS: 84550 ==

== ENCOUNTER → 2022-06-04 10:25 | Outpatient (BNVA) | payer MEDICARE, SELFPAY | PROVIDERS: Visit Provider Nurse Practitioner Family | DX: M10.071 Idiopathic gout, right ankle and foot (principal); I10 Essential (primary) hypertension; Z79.01 Long term (current) use of anticoagulants | CPT/HCPCS: 80053; 84550 ==

== ENCOUNTER → 2022-06-13 14:16 | Outpatient (BNVA) | payer MEDICARE, SELFPAY | PROVIDERS: Visit Provider Emergency Medicine | DX: N41.1 Chronic prostatitis (principal); R10.9 Unspecified abdominal pain | CPT/HCPCS: 81000; 87086 ==

== ENCOUNTER → 2022-07-10 12:51 | Outpatient (BNVA) | payer MEDICARE, SELFPAY | PROVIDERS: Visit Provider Urology | DX: R10.9 Unspecified abdominal pain (principal); N41.1 Chronic prostatitis | CPT/HCPCS: 51798; 81003; 99213 ==

== ENCOUNTER → 2022-08-08 12:05 | Outpatient (BNVA) | payer MEDICARE, SELFPAY | PROVIDERS: Visit Provider Family Medicine | DX: M1A.9XX0 Chronic gout, unspecified, without tophus (tophi) (principal); I10 Essential (primary) hypertension; Z79.01 Long term (current) use of anticoagulants | CPT/HCPCS: 80053; 80061; 84550; 85049; 85384; 85610; 85730 ==

== ENCOUNTER → 2022-09-19 09:50 | Outpatient (BNVA) | payer MEDICARE, SELFPAY | PROVIDERS: Visit Provider Internal Medicine Cardiovascular Disease | DX: I48.0 Paroxysmal atrial fibrillation (principal); M1A.9XX0 Chronic gout, unspecified, without tophus (tophi); I10 Essential (primary) hypertension; I25.10 Atherosclerotic heart disease of native coronary artery without angina pectoris; E78.5 Hyperlipidemia, unspecified; Z86.73 Personal history of transient ischemic attack (TIA), and cerebral infarction without residual deficits; Z79.01 Long term (current) use of anticoagulants | CPT/HCPCS: 99214 ==

== ENCOUNTER → 2022-10-21 11:30 | Outpatient (BNVA) | payer MEDICARE, SELFPAY | PROVIDERS: PCP Family Medicine; Referring Provider Family Medicine; Visit Provider Specialist | DX: R56.9 Unspecified convulsions (principal); G93.9 Disorder of brain, unspecified; G45.9 Transient cerebral ischemic attack, unspecified; R41.82 Altered mental status, unspecified; I48.0 Paroxysmal atrial fibrillation; Z79.01 Long term (current) use of anticoagulants | CPT/HCPCS: 99214 ==

== ENCOUNTER 2022-11-14 11:34 | Outpatient (CLI) | payer MEDICARE, SELFPAY ==
--- NOTE | 2022-11-14 11:00 | MR_ITS ---
WS: [id number] MRA ANGIOGRAPHY [place] OF [place] HISTORY: R51.9 - Headache, unspecified COMPARISON: CT angiogram 01/07/2022 TECHNIQUE: 3-D MR angiography is performed of the [place]. All images are reviewed including source images. Dominant distal right vertebral artery. Very small distal left vertebral artery. Normal basilar arter y. Well-developed posterior communicating arteries. Posterior cerebral arteries are both patent also. No aneurysms. Intracranial carotid arteries are normal. No significant atherosclerotic plaque or occlusion. Middle cerebral arteries are well opacified. No aneurysm or occlusion. There is a tiny amount of atheroscler otic plaque in the M1 segments, left greater than right. Normal anterior communicating arteries. Norm al anterior cerebral arteries. No aneurysm. IMPRESSION: 1. Mild atherosclerotic disease in the middle cerebral arteries. No high-grade stenosis or occlusion. 2. No cerebral artery aneurysms. 3. Very small caliber distal left vertebral artery due to normal variant.
--- NOTE | 2022-11-14 11:15 | MR_ITS ---
WS: [id number] MRI BRAIN WITHOUT CONTRAST HISTORY: R56.9 - Unspecified convulsions COMPARISON: Noncontrast CT head 07/31/2020 and 03/27/2020 TECHNIQUE: Diffusion imaging, multiplanar T1, T2 and FLAIR imaging obtained. Normal diffusion imaging. There is a prior remote infarct with mild volume loss in the left temporal lobe. Volume loss and prior infarct changes were also noted on the prior head CTs from 2020 and 2019. Otherwise mild small vessel ischemic type changes throughout the white matter. No prior lacunar infa rcts. Mild cerebral atrophy. Focal encephalomalacia left temporal lobe at the site of the prior infarct. Ventricles and extra-axial spaces are normal. No inferior displacement of cerebellar tonsils. The sella turcica and pituitary gland are unremarkabl e. Dural venous sinuses and [place] of [place] demonstrate no abnormality on this unenhanced studies. Smal l caliber distal left vertebral artery. Paranasal sinuses: Mild mucoperiosteal thickening left maxillary sinus. No air-fluid levels. Mastoid air cells: Normal. Calvarium and scalp: Intact. IMPRESSION: 1. Normal diffusion imaging. No acute infarct. 2. Remote left temporal lobe infarct with encephalomalacia. 3. Mild small vessel ischemic type changes.
== END 2022-11-14 11:35 | disposition home or self-care (01) ==
PROVIDERS: PCP Family Medicine; Visit Provider Specialist
DX: G45.9 Transient cerebral ischemic attack, unspecified (principal); G93.9 Disorder of brain, unspecified; R51.9 Headache, unspecified; R56.9 Unspecified convulsions; R41.82 Altered mental status, unspecified
CPT/HCPCS: 70544; 70551

== ENCOUNTER → 2023-02-05 12:46 | Outpatient (BNVA) | payer MEDICARE, SELFPAY | PROVIDERS: PCP Family Medicine; Visit Provider Specialist | DX: G93.89 Other specified disorders of brain (principal); R41.82 Altered mental status, unspecified; Z79.02 Long term (current) use of antithrombotics/antiplatelets | CPT/HCPCS: 99214 ==

== ENCOUNTER → 2023-03-13 10:58 | Outpatient (BNVA) | payer MEDICARE, SELFPAY | PROVIDERS: PCP Family Medicine; Visit Provider Internal Medicine Cardiovascular Disease | DX: I48.0 Paroxysmal atrial fibrillation (principal); I10 Essential (primary) hypertension; I25.10 Atherosclerotic heart disease of native coronary artery without angina pectoris; E78.5 Hyperlipidemia, unspecified; Z86.73 Personal history of transient ischemic attack (TIA), and cerebral infarction without residual deficits; Z79.01 Long term (current) use of anticoagulants | CPT/HCPCS: 99214 ==

== ENCOUNTER → 2023-05-04 11:36 | Outpatient (BNVA) | payer MEDICARE, SELFPAY | PROVIDERS: PCP Family Medicine; Visit Provider Family Medicine | DX: M1A.9XX0 Chronic gout, unspecified, without tophus (tophi) (principal); I10 Essential (primary) hypertension; I48.0 Paroxysmal atrial fibrillation; B07.9 Viral wart, unspecified; N41.1 Chronic prostatitis | CPT/HCPCS: 80053; 84550 ==

== ENCOUNTER → 2023-09-16 14:19 | Outpatient (BNVA) | payer MEDICARE, SELFPAY | PROVIDERS: PCP Family Medicine; Visit Provider Internal Medicine | DX: I48.0 Paroxysmal atrial fibrillation (principal); Z86.73 Personal history of transient ischemic attack (TIA), and cerebral infarction without residual deficits; I10 Essential (primary) hypertension; E78.5 Hyperlipidemia, unspecified; I25.10 Atherosclerotic heart disease of native coronary artery without angina pectoris; Z79.01 Long term (current) use of anticoagulants | CPT/HCPCS: 99214 ==

== ENCOUNTER → 2023-09-21 15:55 | Outpatient (BNVA) | payer MEDICARE, SELFPAY | PROVIDERS: PCP Family Medicine; Visit Provider Family Medicine | DX: M1A.9XX0 Chronic gout, unspecified, without tophus (tophi) (principal); I10 Essential (primary) hypertension; I48.0 Paroxysmal atrial fibrillation; N41.1 Chronic prostatitis; N18.30 Chronic kidney disease, stage 3 unspecified | CPT/HCPCS: 80053; 84550 ==

== ENCOUNTER 2023-12-18 13:23 | Outpatient (CLI) | payer MEDICARE, SELFPAY ==
[2023-12-18 14:09] LABS: Prostate Specific Antigen Scr 0.53 ng/mL (0-4)
== END 2023-12-18 13:24 | disposition home or self-care (01) ==
LOC: LAB 13:26
PROVIDERS: PCP Family Medicine; Visit Provider Urology
DX: Z12.5 Encounter for screening for malignant neoplasm of prostate (principal)
CPT/HCPCS: 36415; G0103

== ENCOUNTER → 2024-06-15 14:00 | Outpatient (BNVA) | payer MEDICARE, SELFPAY | PROVIDERS: PCP Family Medicine; Visit Provider Internal Medicine | DX: I48.0 Paroxysmal atrial fibrillation (principal); Z86.73 Personal history of transient ischemic attack (TIA), and cerebral infarction without residual deficits; I10 Essential (primary) hypertension; I25.10 Atherosclerotic heart disease of native coronary artery without angina pectoris; E78.5 Hyperlipidemia, unspecified; R07.9 Chest pain, unspecified | CPT/HCPCS: 99214 ==

== ENCOUNTER 2024-06-22 09:46 | Outpatient (CLI) | payer MEDICARE, SELFPAY ==
--- NOTE | 2024-06-22 | ECG_ITS ---
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 Interpretive Statements Lung unchanged pre/post procedure; Intraprocedure shortess of breath; Symptoms resoled by discharge PROCEDURE: At the baseline, the EKG revealed sinus bradycardia with a rate of 56 bpm. Features of old inferior wall VA. Some nonspecific ST changes.. The baseline heart was 56 bpm with a blood pressue of 162/82 mm of Hg Lexiscan was infused over a period of 20 seconds. A total of 0.4 milligrams of Lexiscan was infused. The stress phase was continued for a total of 5 minutes. Heart rate at the end of the stress phase was 51 bpm with a blood pressure 96/72 mm of Hg. The EKG at the peak infusion revealed no significant changes. Sestamibi was injected 20 seconds after the Lexiscan infusion. Heart rate at the end of the recovery phase was 52 bpm with a blood pressure of 198/92 mm of Hg. CONCLUSION: 1. No significant EKG changes with the LexiScan infusion 2. No LexiScan induced chest pain or cardiac arrhythmia 3. Normal blood pressure and heart rate response 4. Sestamibi/sestamibi perfusion scan pending; see separate report. Electronically Signed On 06-24-2024 16:13:32 CDT by Markell Weber M.D. [id number] [id number]
[2024-06-22 10:15] VITALS: BMI 36.6
--- NOTE | 2024-06-22 10:15 | NMCV_ITS ---
NM aguilar perf SPECT r/s* [id number] Genaro Ayers Age: 73 Gender: M : 1950 Exam Date: 06/22/2024 10:52 Ordering Phys: Juan Ayala M.D ([email or web address]) Technologist: CAIN Sandoval Exam Location: [facility] Indications: cp STRESS TEST Please see separate stress test report in [facility] for full findings IMAGE PROTOCOL Rest/Stress 1 Lexiscan Day Radiopharmaceutical Dose (mCi) Administration Site Administered by Rest: Tc-99m 10.6 IV Felicita Lynch BEAN PICKER Sestamibi Stress:Tc-99m 33 IV Felicita Alonsogle, BEAN PICKER Sestamibi Rest: 22-Jun-2024 60 Discovery 630 Stress: 22-Jun-2024 30 Discovery 630 0.4mg Lexiscan. Images obtained in supine and prone position. SPECT RESULTS Technical Quality: Good Raw Data Analysis: Normal Image Corrections: No attenuation or motion correction applied Summed Stress Score: 19 Summed Rest Score: 16 Summed Difference Score: 4 PERFUSION FINDINGS Moderate to large area of moderate to severely decreased tracer uptake involving the inferior, inferolateral, mid anterolateral and mid apical lateral segments. Slight reversibility is noted in the apical inferior and mid inferolateral segments. A small area of slightly decreased tracer uptake also was noted in the mid anterior wall. Some reversibility was noted in this region as well. FUNCTIONAL RESULTS (calculated via Gated SPECT) Stress Image LV EF (%): 51 Stress EDV (mL):177 TID: 1.15 Stress ESV (mL):87 FUNCTIONAL FINDINGS: Segmental wall motion has revealed no gross wall motion abnormalities. IMPRESSIONS 1. Myocardial perfusion imaging revealing a moderately large area of moderate to severely decreased tracer uptake involving the inferior, inferolateral, anterolateral and apical lateral regions with slight reversibility in the basal inferior, mid inferolateral and apical sinus. Inferior wall regions, suggesting extensive myocardial scarring in the distribution of the right coronary artery and the left circumflex artery with small areas of sandy- infarction ischemia.. The summed difference score was 4 with the summed stress score of 19. 2. Normal LV ejection fraction 51%. 3. LV wall motion analysis revealing no gross wall motion abnormalities. 4. Mildly dilated LV cavity with end-systolic volume of 87 mL No similar previous studies are available for comparison Dr Markell Weber MD FACC (Electronically Signed) Final Date: 22 June 2024 13:50 S
[2024-06-22] MEDS: regadenoson 0.4 Mg/5 ml Syringe IVP (11:21)
[2024-06-22 11:29] VITALS: BP 119/92; PULSE 52
== END 2024-06-22 09:47 | disposition home or self-care (01) ==
PROVIDERS: PCP Family Medicine; Visit Provider Internal Medicine
DX: R07.9 Chest pain, unspecified (principal); R06.02 Shortness of breath; R93.1 Abnormal findings on diagnostic imaging of heart and coronary circulation; I42.0 Dilated cardiomyopathy
CPT/HCPCS: 36415; 78452; 93017; 96374; A9500; J2785

== ENCOUNTER → 2024-07-20 09:17 | Outpatient (BNVA) | payer MEDICARE, SELFPAY | PROVIDERS: PCP Family Medicine; Visit Provider Family Medicine | DX: M10.9 Gout, unspecified (principal); N18.30 Chronic kidney disease, stage 3 unspecified; I10 Essential (primary) hypertension; I48.0 Paroxysmal atrial fibrillation; N41.1 Chronic prostatitis; G47.00 Insomnia, unspecified; F32.0 Major depressive disorder, single episode, mild; N32.81 Overactive bladder | CPT/HCPCS: 80053; 80061; 84550; 85025 ==

== ENCOUNTER → 2025-01-25 09:41 | Outpatient (BNVA) | payer MEDICARE, SELFPAY | PROVIDERS: PCP Family Medicine; Visit Provider Family Medicine | DX: E78.5 Hyperlipidemia, unspecified (principal) | CPT/HCPCS: 80053; 80061 ==

== ENCOUNTER → 2025-03-14 08:58 | Outpatient (BNVA) | payer MEDICARE, SELFPAY | PROVIDERS: PCP Family Medicine; Visit Provider Nurse Practitioner Family | DX: I25.10 Atherosclerotic heart disease of native coronary artery without angina pectoris (principal); I12.9 Hypertensive chronic kidney disease with stage 1 through stage 4 chronic kidney disease, or unspecified chronic kidney disease; N18.30 Chronic kidney disease, stage 3 unspecified; I48.91 Unspecified atrial fibrillation; E78.5 Hyperlipidemia, unspecified; Z79.01 Long term (current) use of anticoagulants; Z86.73 Personal history of transient ischemic attack (TIA), and cerebral infarction without residual deficits | CPT/HCPCS: 99214 ==